=== PATIENT | male | born 1975 | race Asian ===

== ENCOUNTER → 2023-01-12 12:07 | Outpatient (CLI) | payer OTHER, SELFPAY ==
--- NOTE | ~2023-01-12 | US_ITS ---
. EXAMINATION: US soft tissue abdomen DATE: 01/12/2023 12:19 INDICATION: Right anterior abdominal mass. TECHNIQUE: Multiple grayscale and Doppler ultrasound images of the abdomen were obtained. COMPARISON: None FINDINGS: There is a 3.6 x 1.2 x 3.6 cm mass in right anterior abdominal wall that demonstrates simil ar echogenicity and echotexture to normal subcutaneous fat. IMPRESSION: 1. 3.6 cm mass in right anterior abdominal wall, likely a lipoma. Reviewed, dictated and finalized at location L.
== END ==
PROVIDERS: PCP Emergency Medicine; Visit Provider Emergency Medicine
DX: R19.00 Intra-abdominal and pelvic swelling, mass and lump, unspecified site (principal)
CPT/HCPCS: 76705

== ENCOUNTER → 2023-02-04 13:28 | Outpatient (CLI) | payer OTHER, SELFPAY ==
--- NOTE | ~2023-02-04 | MR_ITS ---
MRI of the right shoulder Technique: Axial proton-density fat-sat images, coronal proton density fat-sat and T2 fat-sat images, and sagittal T1-weighted and T2 fat-sat images were acquired. Clinical History: Pain Findings: There is minimal AC joint degenerative change. Coracoclavicular, coracoacromial, and coraco humeral ligaments are intact. Supraspinatus and infraspinatus tendons are intact, without partial or full-thickness tear. Subscapul kaleigh tendon is intact, with mild tendinosis. Tendon of the long head of the biceps is intact. No definite labral tear identified. Inferior glenohumeral ligament is intact, possible minimal thickening. No significant degenerative ch gary or effusion of the glenohumeral joint. No fluid distention of the subacromial/subdeltoid bursa. No muscle atrophy or edema. Impression: Possible mild thickening of the inferior glenohumeral ligament. Consider adhesive capsulitis. No other significant findings. Reviewed, dictated and finalized at [facility]. Impression: Possible mild thickening of the inferior glenohumeral ligament. Consider adhesi ve capsulitis. No other significant findings.
== END ==
PROVIDERS: PCP Emergency Medicine; Visit Provider Orthopaedic Surgery
DX: M25.511 Pain in right shoulder (principal)
CPT/HCPCS: 73221

== ENCOUNTER → 2023-05-20 09:15 | Outpatient (CLI) | payer OTHER, SELFPAY ==
--- NOTE | ~2023-05-20 | XR_ITS ---
EXAMINATION: XR lumbar spine 2-3V DATE: 05/20/2023 09:36 INDICATION: Low back pain. TECHNIQUE: 3 views of lumbar spine were obtained. COMPARISON: Lumbar spine MRI 12/14/2018 FINDINGS: There is 5 degrees dextrocurvature of lumbar spine. Vertebral body heights and intervertebr al disc heights are normal. There are endplate osteophytes at multiple levels. There is multilevel mi ld facet joint osteoarthritis. IMPRESSION: 1. Mild lumbar spondylosis. Reviewed, dictated and finalized at location E. IMPRESSION: 1. Mild lumbar spondylosis.
== END ==
PROVIDERS: PCP Emergency Medicine; Visit Provider Emergency Medicine
DX: M47.896 Other spondylosis, lumbar region (principal)
CPT/HCPCS: 72100

== ENCOUNTER → 2023-08-17 14:18 | Outpatient (CLI) | payer OTHER, SELFPAY ==
--- NOTE | ~2023-08-17 | MR_ITS ---
MRI of the lumbar spine Clinical History: Radiculopathy Technique: Axial T2-weighted and gradient images, and sagittal T1-weighted, T2-weighted, and STIR raphael ges were acquired. Findings: There is no fracture or subluxation of the lumbar spine. Vertebral bodies maintain normal h eight and alignment. No suspicious bone marrow signal abnormality seen. No disc bulge or herniation seen at any lumbar level. There are minimal facet joint degenerative carranza ges. No spinal canal stenosis or neural foraminal narrowing. Paravertebral soft tissues are unremarkable. Impression: Minimal facet joint degenerative changes, otherwise unremarkable exam. Reviewed, dictated and finalized at location M. [facility] [employer] Impression: Minimal facet joint degenerative changes, otherwise unremarkable exam.
== END ==
DX: M54.17 Radiculopathy, lumbosacral region (principal)
CPT/HCPCS: 72148

== ENCOUNTER 2025-06-09 21:16 | Emergency (ER) | payer OTHER, SELFPAY ==
--- OUTSIDE RECORDS SUMMARY | 2025-06-08 08:00 | XMS_ITS | Encounter Summary ---
Author Organization [facility] Address [address] [place] [address] Care Team Providers Care Yacht Hand Name Role Phone Jacklyn Garcia NP Primary Care Provider [phone]- [phone] Reason for Referral * Consultation (Routine) - Pending Review Specialty Diagnoses / Procedures Referred By John granda Referred To Contact Cardiology Diagnoses Chest pain, unspecified type Janet Garza NP [address] [place] [address] [address] [place] [address] Phone: tel: [facility] at [address] [place] [address] Phone: tel: fax: Referral ID Status Reason Start Date Expiration Date Visits Requested Visits Authorized [id number] Pending Review Specialty Services Required 07/08/2026 1 1 Question Answer Please select the performing region: [facility] [[id number]] Please select the performing department: [facility] [[id number]] # of visits: 1 Reason for Visit * Reason Comments Chest Pain Chest pain for about a week. Intermittent. Pain can last for a hour about two to three times a day. Can see muscle moving. Denies SOB or dizziness. Tightness and heaviness. States under a lot of stress recently. Encounter Details Date Type Department Care Team ([facility] Contact Info) Description 06/08/2025 8:00 AM CDT Office Visit [facility] at [address] [address] Janet Garza NP [address] [facility] [address] [place] [address] Chest pain, unspecified type (Primary Dx) Social History Tobacco Use Types Packs/Day Years Used Date Smoking Tobacco: Former Cigarettes 0.5 5 S tarted: 1999 Passive Smoke Exposure: Past Smokeless Tobacco: Never Alcohol Use Standard Drinks/Week Comments Yes 1 (1 standard drink = 0.6 oz pur e alcohol) PHQ-2 Answer Date Recorded PHQ-2 Total Score (If total score is 3 or more points, staff should administer the PHQ-9) 0 05/21/2025 AUDIT-C Answer Date Recorded Q1: How often do you have a drink containing alc ohol? 2-4 times a month 05/21/2025 Q2: How many drinks containi ng alcohol do you have on a typical day when you are drinking? 1 or 2 05/21/2025 Q3: How often do you have si x or more drinks on one occasion? Never 05/21/2025 Sex and Gender Information Value Date Recorded Sex Assigned at Not on file Legal Sex Male 5:53 AM N[employer]SE [employer] Gender Identity Male 04/11/2021 11:49 AM CDT Sexual Orientation Straight 04/11/2021 11 :49 AM CDT documented as of this encounter Last Filed Vital Signs Vital Sign Reading Time Taken Comments Blood Pressure 130/72 06/08/2025 8:07 AM CDT Pulse 83 06/08/2025 8:07 AM CDT Temperature 36.9 C (98.5 F) 06/08/2025 8:07 AM CDT Respiratory Rate 20 06/08/2025 8:07 AM CDT Oxygen Saturation 99% 06/08/2025 8:07 AM CDT Inhaled Oxygen Concentration - - Weight 65.3 kg (144 lb) 06/08/2025 8:07 AM CDT Height - - Body Mass Index 24.72 05/21/2025 9:00 AM CDT documented in this encounter Patient Instructions * Patient Instructions* Janet Garza NP - 06/08/2025 8:00 AM CDT --GO TO ER now for further workup of chest pain to rule out cardiac etiology --Sending patient to ER for further workup of chest pain. [facility] is unable to do a full workup for chest pain. EKG was completed in office. --Referral to cardiology placed documented in this encounter Plan of Treatment Scheduled Referrals Name Type Priority Associated Diagnoses Orde r Schedule Ambulatory referral to Cardiology Outpatient Referral Routine Chest pain, unspecified type Expected: 08/08/2025 (Approximate), Expires: 06/08/2026 documented as of this encounter Procedures Procedure Name Priority Date/Time Associated Diagnosis Comments ECG 12-LEAD Routine 06/08/2025 8:15 AM CDT Chest pain, unspecified type documented in this encounter Results * ECG 12 lead (06/08/2025 8:15 AM CDT) Janet Garza NP ECG ORDERABLES Final Result documented in this encounter Visit Diagnoses Diagnosis Chest pain, unspecified type- Primary documented in this encounter Care Teams Yacht Hand Relationship Specialty Start Date End Date Jacklyn Garcia NP [address] [address] PCP - General Internal Medicine 05/17/25 documented as of this encounter
--- NOTE | ~2025-06-09 | XR_ITS ---
Examination: XR chest 2V Clinical History: CHEST PAIN Comparison: None Technique: PA and Lateral Findings: Cardiomediastinal silhouette normal size and configuration. Lungs clear. No acute bony abnormality. IMPRESSION: 1. No acute cardiopulmonary findings. Reviewed, dictated and finalized at location R.
--- NOTE | 2025-06-09 21:17 | ECG_ITS ---
Test Date: 2025-06-09 21:24:13 Measurements Intervals [place] Rate: 86 P: 68 MI: 185 QRS: 53 QRSD: 105 T: 47 QT: 367 QTc: 439 Interpretive Statements SINUS RHYTHM NORMAL ECG No previous ECG available for comparison Electronically Signed On 06-10-2025 08:09:08 CDT by Dejon Soliz D.O.
--- OUTSIDE RECORDS SUMMARY | 2025-06-09 21:18 | XMS_ITS | Clinical Summary ---
Author Organization [facility] [place] [facility] Address [address] [place] [id number] Care Team Providers Care Service Loss Control Consultant Name Role Phone Jacklyn Garcia NP Primary Care Provider [phone]- [phone] Allergies No known active allergies Medications fenofibrate (TRIGLIDE) 160 mg tabletIndicatio ns:Hypertriglyc eridemia Take 1 tablet (160 mg total) by mouth daily 90 tablet 3 05/21/20 25 Active rosuvastatin (CRESTOR) 10 mg tablet Take 1 tablet (10 mg total) by mouth daily 10/06/19 22 025 Discontin ued(Patie nt Reported) meloxicam (MOBIC) 15 mg tablet Take 1 tablet (15 mg total) by mouth daily 11/07/19 23 025 Discontin ued(Patie nt Reported) terbinafine (LamiSIL) 250 mg tablet Take 1 tablet (250 mg total) by mouth daily 01/06/20 23 025 Discontin ued(Patie nt Reported) fenofibrate (TRIGLIDE) 160 mg tablet Take 1 tablet (160 mg total) by mouth daily 02/02/20 24 025 Discontin ued(Reord er) triamcinolone (KENALOG) 0.1 % creamIndication s:Insect bite of lower extremity, unspecified laterality, initial encounter Apply to affected area 1-2 times daily as needed. Avoid face and groin. 30 g 5 03/04/20 24 10/06/2 025 Discontin ued(Patie nt Reported) methylPREDNISol one (MEDROL DOSEPACK) 4 mg DosepackIndicat ions:Viral URI with cough Take 6 tabs on day 1, reduce dose by 1 daily until prescription is complete. 1 packet 07/01/20 24 025 Discontin ued(Patie nt Reported) benzonatate (TESSALON) 200 mg capsuleIndicati ons:Viral URI with cough Take 1 capsule (200 mg total) by mouth 3 (three) times a day as needed for cough keep tessalon out of reach of children, especially children under the age of 10, due to possible serious risk such as if ingested by children under the age of 10. 30 capsule 07/01/20 24 025 Discontin ued(Patie nt Reported) Active Problems Problem Noted Date Diagnosed Date Hypertriglyceridemia 05/21/2025 Assessment & Plan (05/21/2025 9:51 AM CDT): Fasting lipid panel reviewed . Continue fenofibrate. Refills sent to patients requested pharmacy. Discussed medication desired effects, potential side effects, and how to administer the medication. Nonpharmacological interventions such as low carb diet, high in vegetables and fruit discussed. Educated on importance of physical activity. Follow up in 6 months or sooner if needed. Patient verbalizes understanding regarding plan of care and all questions answered Orders: fenofibrate (TRIGLIDE) 160 mg tablet; Take 1 tablet (160 mg total) by mouth daily Wellness examination 05/21/2025 Assessment & Plan (05/21/2025 9:51 AM CDT): Routine health maintenance objectives discussed and orders placed for any outstanding screening studies. Physical exam performed as above. Routine annual labs obtained and will be reviewed with patient when results available. Encouraged regular physical activity--moderate activity for a total of 150 minutes per week over 3-5 days. Encouraged healthy diet with regular fresh fruits and vegetables limited in processed carbohydrates. Alcohol use - social Nicotine use - former, never after , light smoker prior Depression screening - PHQ Screening Over the past 2 weeks, how often have you been bothered by any of the following problems? Little Interest or Pleasure in Doing Things: 0-Not at all Feeling Down, Depressed, or Hopeless: 0-Not at all PHQ-2 Total Score (If total score is 3 or more points, staff should administer the PHQ-9): 0 Orders: CBC with auto differential; Future Comprehensive metabolic panel; Future Family history of prostate cancer in father 01/2025 Overview (05/21/2025): Diagnosed at age 77. Uncle diagnosed at age 70 Assessment & Plan (05/21/2025 9:51 AM CDT): Orders: PSA screen; Future Encounters Date Type Department Care Team Description 06/08/2025 8:00 AM CDT Office Visit [facility] at [address] [phone] Janet Garza NP Chest pain, unspecified type (Primary Dx) 05/22/2025 Documentation [facility] at [address] [phone] Jacklyn Garcia NP 05/21/2025 9:40 AM CDT Lab [address] [address] Need for hepatitis C screening test; Wellness examination; Encounter for screening examination for impaired glucose regulation and diabetes mellitus; Screening for iron deficiency anemia; Screening for thyroid disorder; Screening for prostate cancer; Family history of prostate cancer in father 05/21/2025 9:00 AM CDT Office Visit [facility] at [address] [phone] Jacklyn Garcia NP BMI 24.0-24.9, adult (Primary Dx); Wellness examination; Screening for thyroid disorder; Screening for prostate cancer; Family history of prostate cancer in father; Encounter for screening examination for impaired glucose regulation and diabetes mellitus; Screening for iron deficiency anemia; Hypertriglyceridemia ; Encounter for colorectal cancer screening using Cologuard test; Need for hepatitis C screening test; Chronic right hip pain 05/21/2025 Results Follow-Up [facility] at [address] [phone] Therien, Jacklyn R., BEAN ROASTER Hepatitis C antibody Blood, Comprehensive metabolic panel, CBC with auto differential, Additional followed-up results: 4 from Last 3 Months Immunizations Immunization Administration Dates Next Due DTaP 5 Pertussis 06/11/2017 Influenza, Quadrivalent, Spl it, Preservative Free, Intramuscular 07/04/2021,05/03/2020,05/01/2019,09/24,06/11/2017 Surgical History Surgery Date Site/Laterality Comments FLUORO GUIDED INJECTION SHOULDER RIGHT 05/11/2023 Ri ght Medical History Medical History Date Comments Hyperlipidemia Family History Medical History Relation Name Comments Hypertension Father Dad Family history of hypertension - (Added by TW Conv) Prostate cancer Father Dad No Known Problems Mother Prostate cancer Other Dads brother Alcohol abuse Paternal Grandfather Grandfather Relation Name Status Comments Father Dad Alive Mother Alive Other Dads brother Alive Paternal Grandfather Grandfather Alive Social History Tobacco Use Types Packs/Day Years Used Date Smoking Tobacco: Former Cigarettes 0.5 5 S tarted: 2000 Passive Smoke Exposure: Past Smokeless Tobacco: Never Tobacco Cessation:Counseling Given: Not Answered Alcohol Use Standard Drinks/Week Comments Yes 1 [...] on file 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 Gender Identity Male 04/11/2021 11:49 AM CDT Sexual Orientation Straight 04/11/2021 11 :49 AM CDT Obstetrics History Last Filed Vital Signs Vital Sign Reading Time Taken Comments Blood Pressure 130/72 06/08/2025 8:07 AM CDT Pulse 83 06/08/2025 8:07 AM CDT Temperature 36.9 C (98.5 F) 06/08/2025 8:07 AM CDT Respiratory Rate 20 06/08/2025 8:07 AM CDT Oxygen Saturation 99% 06/08/2025 8:07 AM CDT Inhaled Oxygen Concentration - - Weight 65.3 kg (144 lb) 06/08/2025 8:07 AM CDT Height 162.6 cm (5' 4) 05/21/2025 9:00 AM CDT Body Mass Index 24.72 05/21/2025 9:00 AM CDT Plan of Treatment Health Maintenance Due Date Last Done Comments Colon Cancer Screening-Colonoscopy 1977 Influenza Vaccine (#1) 2026 , 05/03/2020, 05/01/2019, Additional history exists Postponed from 04/16/2025 (Patient declined, but will receive in the future) Covid-19 Vaccine ( season) 2026 08/22/2021, 12/05/2020, 11/10/2020 Postponed from 04/16/2025 (Patient declined, but will receive in the future) Depression Screening 05/21/2026 05/21/2025 Regular Well Visit/Exam 18-64 05/21/2026 05/21/2025 Prostate Cancer Screening-PSA 05/21/2027 05/21/2025 DTaP/Tdap/Td Vaccine (2 - Tdap) 06/11/2027 06/11/2017 Hepatitis C Screening Completed 05/21/2025 Hepatitis B Screening Discontinued Pneumococcal vaccine <65 Aged Out No longer eligible based on patient's age to complete this topic Procedures Procedure Name Priority Date/Time Associated Diagnosis Comments ECG 12-LEAD Routine 06/08/2025 8:15 AM CDT Chest pain, unspecified type EGFR Routine 05/21/2025 9:44 AM CDT Wellness examination Encounter for screening examination for impaired glucose regulation and diabetes mellitus DIFFERENTIAL AUTO Routine 05/21/2025 9:4 4 AM CDT Wellness examination Screening for iron deficiency anemia PSA SCREEN Routine 05/21/2025 9:44 AM CDT Screening for prostate cancer Family history of prostate cancer in father THYROID FUNCTION CASCADE Routine 05/21/2025 9:44 AM CDT Screening for thyroid disorder CBC WITH AUTO DIFFERENTIAL Routine 05/21/2025 9:44 AM CDT Wellness examination Screening for iron deficiency anemia COMPREHENSIVE METABOLIC PANEL Routine 05/21/2025 9:44 AM CDT Wellness examination Encounter for screening examination for impaired glucose regulation and diabetes mellitus HEPATITIS C ANTIBODY Routine 05/21/2025 9:44 AM CDT Need for hepatitis C screening test from Last 3 Months Results * ECG 12 lead (06/08/2025 8:15 AM CDT) us Janet Garza NP ECG ORDERABLES Final Result * eGFR (05/21/2025 9:44 AM CDT) eGFR >90 >=60 mL/min/1. 73 m2 Comment: Interpretive Data Reference Interval Normal >/= 90 mL/min/1.73m2 Mildly decreased* 60 - 89 mL/min/1.73m2 Mildly to moderately decreased 45 - 59 mL/min/1.73m2 Moderately to severely decreased 30 - 44 mL/min/1.73m2 Severely decreased 15 - 29 mL/min/1.73m2 Kidney Failure < 15 mL/min/1.73m2 *Relative to young adult level Estimated glomerular filtration rate is determined by the 2020 CKD-EPI equation recommended by the National Kidney Foundation (A Unifying Approach to GFR Estimation: Recommendations of the NKF-ASK Task Force on Reassessing the Inclusion of Race in Diagnosing Kidney Disease, JASN 2020). The CKD-EPI equation should not be used for patients with unstable renal function and has not been validated in children and those over 70. Current interpretive data was last reviewed 2021. Blood 05/21/2025 9:44 AM CDT 05/21/2025 1:52 PM CDT us Jacklyn Garcia NP LAB BLOOD ORDERABLES Final Result [facility] [address] [facility] Department [place] [address] * Differential, auto (05/21/2025 9:44 AM CDT) Neutrophil abs 3.08 1.50 - 6.50 K/cumm Imm gran abs 0.01 0.00 - 0.10 K/cumm [facility] Lymphocyte abs 1.91 0.80 - 3.30 K/cumm [facility] Monocyte abs 0.37 0.20 - 0.80 K/cumm [facility] Eosinophil abs 0.09 0.00 - 0.50 K/cumm [facility] Basophil abs 0.07 0.00 - 0.10 K/cumm [facility] Neutrophil pct 55.7 % [facility] Comment: Interpretive Data Percent cell count reference ranges are not reported, since discordance with absolute values may lead to misinterpretation of CBC data. Current Interpretive Data was last revised on 2017. Imm gran pct 0.2 % [facility] Comment: Interpretive Data Percent cell count reference ranges are not reported, since discordance with absolute values may lead to misinterpretation of CBC data. Current Interpretive Data was last revised on 2017. Lymphocyte pct 34.5 % [facility] Comment: Interpretive Data Percent cell count reference ranges are not reported, since discordance with absolute values may lead to misinterpretation of CBC data. Current Interpretive Data was last revised on 2017. Monocyte pct 6.7 % [facility] Comment: Interpretive Data Percent cell count reference ranges are not reported, since discordance with absolute values may lead to misinterpretation of CBC data. Current Interpretive Data was last revised on 2017. Eosinophil pct 1.6 % [facility] Comment: Interpretive Data Percent cell count reference ranges are not reported, since discordance with absolute values may lead to misinterpretation of CBC data. Current Interpretive Data was last revised on 2017. Basophil pct 1.3 % [facility] Comment: Interpretive Data Percent cell count reference ranges are not reported, since discordance with absolute values may lead to misinterpretation of CBC data. Current Interpretive Data was last revised on 2017. Blood 05/21/2025 9:44 AM CDT 05/21/2025 10:50 AM CDT Jacklyn Garcia BEAN ROASTER LAB BLOOD ORDERABLES Final Result Performing Organization Address City/[facility] Co de Phone Number YURI [address] [place] [address] * Thyroid Function Grant (05/21/2025 9:44 AM CDT) Pathologist [facility] TSH 1.78 0.30 - 4.20 mcIUnit/mL Blood 05/21/2025 9:44 AM CDT 05/21/2025 1:52 PM CDT Jacklyn Garcia BEAN ROASTER LAB BLOOD ORDERABLES Final Result Performing Organization Address [facility] Phone Number [address] [address] * PSA screen (05/21/2025 9:44 AM CDT) [facility] PSA-Total 1.21 ng/mL Comment: Interpretive Data AGE SEX REFERENCE INTERVAL 0 minutes-150 years Female None 0 minutes-49 years Male None 50-59 years Male 0-3.90 60-69 years Male 0-5.40 70-79 years Male 0-6.20 80-150 years Male 0-6.20 The Eder PSA Total assay procedure was used. Results from different manufacturers or methods may not be comparable. Serial testing should be performed using the same method. Current interpretive data last revised 21. Blood 05/21/2025 9:44 AM CDT 05/21/2025 1:52 PM CDT Jacklyn Garcia BEAN ROASTER LAB BLOOD ORDERABLES Final Result Performing Organization Address [facility] Co de Phone Number [address] [place] [address] * (ABNORMAL) CBC with auto differential (05/21/2025 9:44 AM CDT) Pathologist [facility] WBC 5.53 3.80 - 9.90 K/cumm Hgb 14.2 13.0 - 17.5 g/dL [facility] Hct 44.1 38.9 - 50.3 % [facility] Plt 372 150 - 400 K/cumm [facility] MPV 8.9(L) 9.1 - 12.[address] [facility] RBC 4.90 4.30 - 5.80 M/cumm [facility] MCV 90.0 81.3 - 96.[address] [facility] MCH 29.0 27.1 - 33.[address] [facility] MCHC 32.2(L) 32.3 - 35.7 g/dL [facility] RDW CV 12.2 11.1 - 14.9 % [facility] RDW SD 40.2 35.7 - 48.[address] [facility] NRBC abs 0.00 0.00 - 0.01 K/cumm [facility] Blood 05/21/2025 9:44 AM CDT 05/21/2025 10:50 AM CDT Jacklyn Garcia NP LAB BLOOD ORDERABLES Final Result [facility] [address] [facility] Department [place] [address] * Hepatitis C antibody Blood (05/21/2025 9:44 AM CDT) [facility] Hep C Ab Nonreactive Nonreactive Comment: Antibodies to HCV not detected. Does NOT exclude the possibility of recent exposure to HCV. Current interpretive data was last revised on 22 Interpretive Data Nonreactive: Antibodies to HCV not detected. Does NOT exclude the possibility of recent exposure to HCV. Equivocal: Equivocal for HCV antibodies. Supplemental molecular testing will be automatically performed to determine infection status in accordance with current CDC screening recommendations. Reactive: Positive for HCV antibodies. This may represent current or past HCV infection. Supplemental molecular testing will be automatically performed to determine current infection status in accordance with current CDC screening recommendations. Interpretive data was last revised on 2019. Blood 05/21/2025 9:44 AM CDT 05/21/2025 1:52 PM CDT Jacklyn Garcia BEAN ROASTER LAB MICROBIOLOGY - GENERAL ORDERABLES Final Result Performing Organization Address City/State/[facility] Co de Phone Number YURI [address] [facility] Department [place] [address] * Comprehensive metabolic panel (05/21/2025 9:44 AM CDT) Sodium 142 135 - 145 mmol/L Potassium, pl 4.1 3.3 - 4.9 mmol/L [facility] Chloride 107 97 - 110 mmol/L [facility] CO2 25 22 - 32 mmol/L [facility] Anion gap 10 2 - 15 mmol/L [facility] BUN 21 6 - 25 mg/dL [facility] Creatinine 0.97 0.80 - 1.30 mg/dL [facility] Glucose 103 70 - 199 mg/dL [facility] Comment: Interpretive Data Fasting glucose >/= 126 mg/dl is diagnostic for diabetes. Fasting is defined as no caloric intake for at least 8 hours. Fasting glucose between 100 mg/dl to 125 mg/dl is diagnostic of prediabetes. In a patient with classic symptoms of hyperglycemia or hyperglycemic crisis, a random glucose >/= 200 mg/dl is diagnostic for diabetes. In the absence of unequivocal hyperglycemia, results should be confirmed by repeat testing. The classification and Diagnosis of Diabetes Diabetes Care 202; 46: S19-S40. Current interpretive data was last revised 2022. Calcium 10.0 8.5 - 10.3 mg/dL [facility] Bilirubin, total 0.4 0.1 - 1.2 mg/dL [facility] Protein, pl 7.3 6.5 - 8.5 g/dL [facility] Albumin 4.7 3.5 - 5.0 g/dL [facility] Alk phos 44 40 - 130 Units/L [facility] ALT 17 7 - 55 Units/L [facility] AST 27 10 - 50 Units/L [facility] Blood 05/21/2025 9:44 AM CDT 05/21/2025 1:52 PM CDT Jacklyn Garcia BEAN ROASTER LAB BLOOD ORDERABLES Final Result [facility] [address] [facility] Department [place] [address] from Last 3 Months Insurance [facility] [id number] [facility] Care Teams Service Loss Control Consultant Relationship Specialty Start Date End Date Jacklyn Garcia NP [address] [address] PCP - General Internal Medicine 05/17/25
--- OUTSIDE RECORDS SUMMARY | 2025-06-09 21:18 | XMS_ITS | Encounter Summary ---
Author Organization [facility] Address [address] [place] [address] Care Team Providers Care Charging Operator Name Role Phone Jacklyn Garcia NP Primary Care Provider +1- [phone] Encounter Details Date Type Department Care Team (Latest Contact Info) Description 05/21/2025 Results Follow-Up [facility] at [address] [phone] Jacklyn Garcia INVESTMENT DIRECTOR [address] [place] [address] [address] [place] [address] Hepatitis C antibody Blood, Comprehensive metabolic panel, CBC with auto differential, Additional followed-up results: 4 Social History Tobacco Use Types Packs/Day Years [...] on file 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 2-4 times a month 05/21/2025 9:03 AM ELIAZART Pauline Gracia MA Q2: How many drinks containing alcohol do you have on a typical day when you are drinking? 1 or 2 05/21/2025 9:03 AM Pauline Wong MA Q3: How often do you have six or more drinks on one occasion? Never 05/21/2025 9:03 AM ELIAZART Pauline Gracia MA documented as of this encounter Plan of Treatment Not on file documented as of this encounter Visit Diagnoses Not on filedocumented in this encounter Care Teams Charging Operator Relationship Specialty Start Date End Date Jacklyn Garcia NP [address] [address] PCP - General Internal Medicine 05/17/25 documented as of this encounter
--- OUTSIDE RECORDS SUMMARY | 2025-06-09 21:18 | XMS_ITS | Clinical Summary ---
Author Organization [facility] Address [address] [place] [address] Care Team Providers Care Bilingual Secretary Name Role Phone Unavailable Primary Care Provider Unavailabl e Source Comments [facility],non-owned Affiliates and Associated Physician Practices is amultiple site organization consisting of ambulatory clinics and hospital sitesin [place], [place] and [place]. This disclosure is being madepursuant to the Care Everywhere program and may not contain all information available regarding this patient. Last updated 18.[facility] Allergies No known active allergies Active Problems No known active problems Immunizations Immunization Administration Dates Next Due DTAP 5 PERTUSSIS ANTIGENS 06/11/2017 INFLUENZA VACCINE, QUADR. (F LUZONE; FLULAVAL; FLUARIX; AFLURIA QUADRIVALENT; 6MO+), 0.5 ML (IIV4) 07/04/2021,05/03/2020,05/01/2019,2016 Social History Tobacco Use Types Packs/Day Years Used Date Smoking Tobacco: Never Assessed Sex and Gender Information Value Date Recorded Sex Assigned at Not on file Legal Sex Male 4:16 PM CDT Gender Identity Not on file Sexual Orientation Not on file Plan of Treatment Health Maintenance Due Date Last Done Comments COLOGUARD (AGES 45-75) - COLON CA SCREENING 1977 COLON MONITORING 1977 COLONOSCOPY - COLON CA SCREENING 1977 CT COLONOGRAPHY - COLON CA SCREENING 1977 Colorectal Cancer Screening 1977 FIT - COLON CA SCREENING 1977 FLEX SIG - COLON CA SCREENING 1977 LIPID TESTING 1977 HIV SCREENING 1992 HEPATITIS C SCREENING 07/17/1995 HEPATITIS B VACCINE (1 of 3 - 19+ 3-dose series) 1996 DEPRESSION SCREENING 08/16/2024 COVID-19 VACCINE (3 - 2024- season) 2025 12/05/2020, 11/10/2020 INFLUENZA VACCINE (#1) 2025 , 05/03/2020, 05/01/2019, Additional history exists DTAP/TDAP/TD VACCINES (2 - Tdap) 06/11/2027 06/11/2017 ZOSTER VACCINE (1 of 2) 2027 HIB VACCINE Aged Out No longer eligi ble based on patient's age to complete this topic HPV VACCINE Aged Out No longer eligi ble based on patient's age to complete this topic MENINGOCOCCAL (Group B) VACCINE SHARED DECISION-MAKING Aged Out No longer eligible based on patient's age to complete this topic MENINGOCOCCAL GROUPS A/C/Y/W VACCINE Aged Out No longer eligible based on patient's age to complete this topic PNEUMOCOCCAL VACCINE Aged Out No long er eligible based on patient's age to complete this topic Insurance Erly
[2025-06-09 21:19] VITALS: BP 142/94; PULSE 87; RESP 18; TEMP 37.2; O2SAT 100
--- NOTE | 2025-06-09 21:33 | ED.CHESTPAIN ---
HPI - Chest Pain General Chief Complaint: Chest Pain Stated Complaint: chest pain, heaviness, L arm pain Time Seen by Provider: 06/09/25 21:23 Source: patient Mode of arrival: ambulatory Limitations: no limitations History of Present Illness HPI narrative: This is a a 49-year-old male with history of hypertriglyceridemia who presents to the ED for chest pain. Patient states for the past week, he has been having left-sided chest pain intermittently. He states the last about an hour or so and starts. He states he was seen at urgent care for this a couple days ago where an EKG was obtained. He was apparently advised to come to the ED at that time but he was feeling better so he did not. He states that this evening he was sitting at home when he had onset of the chest pain again but with radiation down his left arm into his left neck. Denies shortness of breath, fevers, chills co evaluable vomiting. Related Data Home Medications ?Medication ?Instructions ?Recorded ?Confirmed ?Last Taken ?Type rosuvastatin 10 mg tablet 10 mg DAILY 07/16/23 07/16/23 Unknown History Allergies Allergy/AdvReac Type Severity Reaction Status Date / Time No Known Allergies Allergy Unknown Unverified 02/08/24 12:55 Review of Systems Review of Systems: Gen.: Denies fevers or chills Eyes: Denies eye pain or visual change ENT: Denies congestion Respiratory: Denies shortness of breath or cough CV: As per HPI GI: Denies abdominal pain nausea, emesis or diarrhea denies burning, urgency, frequency or hematuria Musculoskeletal: Denies back pain or muscle pain Neuro: Denies numbness, tingling, weakness or focal weakness Skin: Denies rash Except as documented, all other systems reviewed and negative [facility] Social History Social History Smoking status: Never smoker Drinks per week: 1 Substance use type: does not use Living arrangements: with family Spiritual care concerns: No Exam Narrative: APPEARANCE: No acute distress, nontoxic, resting in bed EYES: EOMI HEENT: Normocephalic, atraumatic, OMM RESPIRATORY: No respiratory distress Clear to auscultation bilaterally with no rhonchi wheezing or rales. CARDIOVASCULAR: Regular rate and rhythm without murmurs rubs or gallops. Mild left lower parasternal chest tenderness to palpation ABDOMINAL: Soft, nontender, nondistended, no rebound or guarding MUSCULOSKELETAl: Moves all extremities. No clubbing, cyanosis or edema. NEURO: Awake and alert. Following commands, speech normal, no focal deficits SKIN:: Warm, dry. No rashes lesions or abrasions PSYCHIATRIC: Normal affect/mood, Course Vital Signs Vital signs: Vital Signs Temperature 99 F 06/09/25 21:19 Pulse Rate 87 06/09/25 21:19 Respiratory Rate 18 06/09/25 21:19 Blood Pressure 142/94 H 06/09/25 21:19 Pulse Oximetry 100 06/09/25 21:19 Oxygen Delivery Room Air 06/09/25 21:19 Temperature 99 F 06/09/25 21:19 Pulse Rate 87 06/09/25 21:19 Respiratory Rate 18 06/09/25 21:19 Blood Pressure 142/94 H 06/09/25 21:19 Pulse Oximetry 100 06/09/25 21:19 Oxygen Delivery Room Air 06/09/25 21:19 MDM - Chest Pain MDM Narrative Medical decision making narrative: 49-year-old male presenting for chest pain. On initial evaluation, patient was in no acute distress, afebrile, hemodynamically stable. He had minimal left-sided chest wall tenderness to palpation. Heart and lungs clear. Abdomen soft and nontender. CBC and CMP were without significant abnormalities. Troponin negative. Chest x-ray showed no acute process. No changes on EKG. Heart score 1. Patient's EKGs and labs are without significant high risk changes. Cardiac risk factors reviewed. Patient is felt likely low risk for ACS and reasonable for further risk stratification testing as an outpatient. Pain was not sudden or maximal in onset without tearing or ripping quality. No other signs of symptoms suggest aortic dissection. A low-risk Wells criteria is noted, PE is felt to be unlikely. No pneumonia seen on evaluation today. Patient is felt to be a reasonable candidate for continued evaluation as an outpatient. Patient was given referral to Dr. Reddy, cardiology, for further evaluation and management. He was given prescriptions for Lidoderm. He was educated on Tylenol and ibuprofen use. Patient was agreeable to this plan. Given strict return precautions. Differential Diagnosis Differential diagnosis: Likely stable angina, unstable angina pectoris, atypical chest pain, costochondritis and chest pain Medical Records Data Attestation: I reviewed the patient's medical records. Lab Data Attestation: I reviewed the patient's lab results. 06/09/25 21:36 06/09/25 21:36 Labs: Lab Results 06/09/25 Range/Units 21:36 WBC 8.6 (4.5-10.0) K/mm3 RBC 4.60 (4.6-6.20) M/mm3 Hgb 13.2 L (14.0-18.0) g/dL Hct 40.6 L (42.0-52.0) % MCV 88.3 (80-100) fl MCH 28.7 (26-34) pg MCHC 32.5 (32-36) g/dl RDW 12.0 (11.5-14.5) % Plt Count 333 (150-375) k/mm3 MPV 8.7 (7.4-10.4) fl Immature Gran % (Auto) 0.2 (0-0.5) % Neut % (Auto) 56.8 (45.5-73.1) % Lymph % (Auto) 34.0 (18.3-44.2) % Petroleum % (Auto) 7.1 (2.6-8.5) % Eos % (Auto) 1.2 (0-4.4) % Baso % (Auto) 0.7 (0.2-1.2) % Lymph # (Auto) 2.92 (0.9-3.2) K/mm3 Petroleum # (Auto) 0.6 (0.1-0.6) K/mm3 Eos # (Auto) 0.1 (0-0.3) K/mm3 Baso # (Auto) 0.1 (0.0-0.1) K/mm3 Abs Immat Gran (auto) 0.02 (0.00-0.031) K/mm3 Absolute Neuts (auto) 4.9 (1.3-6.7) K/mm3 Absolute Nucleated RBC 0.000 (0.0-0.012) K/mm3 Nucleated RBC % 0.0 (0.0-0.2) % PT 12.7 (11.1-14.7) Seconds INR 0.9 APTT 26.7 (22.3-36.8) Seconds Sodium 139 (137-145) mmol/L Potassium 3.5 (3.4-5.0) mmol/L Chloride 105 (98-107) mmol/L Carbon Dioxide 24 (22-30) mmol/L Anion Gap 10 (4-12) mmol/L BUN 27 H (9-20) mg/dL Creatinine 0.98 (0.7-1.3) mg/dL Estim Creat Clear Calc 69 ml/min Estimated GFR > 60 (59 - ) Glucose 113 H (65-110) mg/dL Calcium 9.4 (8.4-10.2) mg/dL Total Bilirubin 0.3 (0.2-1.3) mg/dL AST 26 (17-59) U/L ALT 18 (6-50) U/L Alkaline Phosphatase 49 (38-126) U/L Troponin I < 0.012 (0.000-0.034) ng/mL Total Protein 7.4 (6.3-8.2) g/dL Albumin 4.6 (3.5-5.1) g/dL Lipase 187 (23-300) U/L Imaging Data Attestation: I personally reviewed and interpreted this imaging study as follows: My impression: Chest x-ray: Normal cardiac silhouette, no consolidations, no pleural effusions, no pulmonary vascular congestion ECG Data EKG #1: Attestation: I personally reviewed and interpreted this ECG as follows: ECG completion date: 06/09/25 ECG completion time: 21:46 Interpretation: Normal sinus rhythm, normal axis, normal intervals, no acute ST or T-wave changes Discharge Plan Discharge Clinical Impression: Costalchondritis Patient Disposition: Home Condition: Stable Instructions: Antibiotic Form, Chest Pain (ED), Costochondritis (ED) Additional Instructions: Labs done EKG, chest x-ray were obtained and were all reassuring that there is no cardiac damage at this time. Her symptoms are most consistent with pleurisy or costochondritis. You may have an underlying stable angina which should be further evaluated by a eyelet machine operator. You were given a referral to Dr. Leal, schedule appointment in the next week or so for re-evaluation. He may take Tylenol and ibuprofen for the pain. Your given a prescription for Lidoderm come take this as prescribed. Return to the ED for any new or worsening symptoms. Patient Language: Divehi Prescriptions: New lidocaine [Lidocan III] 5 % adhesive patch,medicated 1 patch topical DAILY Qty: 15 0RF Rx Instructions: leave on most painful area for up to 12 hrs No Action rosuvastatin 10 mg tablet 10 mg DAILY Follow-up/Referrals: Paras Leal MD [Physician, Cardiology] Jose,Jacklyn Cueto APRN [Primary Care Provider, Unknown]
[2025-06-09 21:43] LABS: Hematocrit 40.6 % (42.0-52.0); Hemoglobin 13.2 g/dL (14.0-18.0); Immature Granulocyte Percent A 0.2 % (0-0.5); Lymphocytes Absolute Auto 2.92 K/mm3 (0.9-3.2); Mean Corpuscular HGB Conc 32.5 g/dl (32-36); Mean Corpuscular Hemoglobin 28.7 pg (26-34); Mean Corpuscular Volume 88.3 fl (80-100); Nucleated Red Blood Cells Absolute Auto 0.000 K/mm3 (0.0-0.012); Nucleated Red Blood Cells Perc 0.0 % (0.0-0.2); Platelet Count Result 333 k/mm3 (150-375); Red Blood Count 4.60 M/mm3 (4.6-6.20); White Blood Count 8.6 K/mm3 (4.5-10.0)
[2025-06-09 21:53] LABS: Alanine Aminotransferase 18 U/L (6-50); Albumin Level 4.6 g/dL (3.5-5.1); Alkaline Phosphatase 49 U/L (38-126); Anion Gap 10 mmol/L (4-12); Aspartate Amino Transferase 26 U/L (17-59); Bilirubin,Total 0.3 mg/dL (0.2-1.3); Blood Urea Nitrogen 27 mg/dL (9-20); Calcium 9.4 mg/dL (8.4-10.2); Carbon Dioxide 24 mmol/L (22-30); Chloride 105 mmol/L (98-107); Estimated CRCL calculation 69 ml/min; Estimated Glomerular Filt Rate > 60; Glucose 113 mg/dL (65-110); Lipase 187 U/L (23-300); Potassium 3.5 mmol/L (3.4-5.0); Sodium 139 mmol/L (137-145); Total Protein 7.4 g/dL (6.3-8.2)
[2025-06-09] MEDS: ASPIRIN 81 MG CHEWABLE TABLET 324 MG PO (21:53)
[2025-06-09] MEDS: LIDOCAINE 5% PATCH 1 PATCH TRANSDERM (21:54)
[2025-06-09 21:57] LABS: INR 0.9; Prothrombin Time 12.7 Seconds (11.1-14.7)
[2025-06-09 21:58] LABS: Partial Thromboplastin Time 26.7 Seconds (22.3-36.8)
[2025-06-09 22:05] LABS: Troponin I < 0.012 ng/mL (0.000-0.034)
[2025-06-09 22:38] VITALS: BP 138/75; PULSE 65; RESP 14; O2SAT 99
== END 2025-06-09 22:39 | disposition home or self-care (01) ==
PROVIDERS: Emergency Provider Student in an Organized Health Care Education/Training Program; PCP Nurse Practitioner
DX: M94.0 Chondrocostal junction syndrome [Tietze] (principal); E78.1 Pure hyperglyceridemia
CPT/HCPCS: 36415; 71046; 80053; 83690; 84484; 85025; 85610; 85730; 93005; 99284; A9270